=== PATIENT | female | born 1945 | race Caucasian/White ===

== ENCOUNTER → 2020-09-01 | Outpatient (CLI) | payer MEDICARE, OTHER ==
[~2020-09-01] MED LIST: ATOR10 PO; CALCIUM 250 MG; FISH OIL 1200MG; ZOMETA 4 M4 MG/100 M IV
== END | disposition home or self-care (01) ==
LOC: LAB SHORT 16:02 → LAB 16:02
DX: R30.0 Dysuria (principal)
CPT/HCPCS: 87086

== ENCOUNTER → 2020-09-14 | Outpatient (CLI) | payer MEDICARE, OTHER | END | disposition home or self-care (01) | LOC: LAB 15:59 | DX: N39.0 Urinary tract infection, site not specified (principal) | CPT/HCPCS: 87086 ==

== ENCOUNTER 2024-08-23 13:27 | Day surgery (SDC) | payer MEDICARE, OTHER ==
[2024-08-23] VITALS (9 sets, daily range): BP systolic 112–155; BP diastolic 60–88
[~2024-08-23] VITALS: Ht 160 cm; Wt 74.0 kg
[~2024-08-23 13:27] MED LIST changes: +ACIDOPHILUS1 EAC3 PO; +ASCO500 PO; +CALCIUM-VITAMIN D PO; +CO Q10100 MG PO; +L-LYSINE500 M1; +LORA10ER PO; +LOSA25 PO; +Lovastatin20 MG PO; +MULTI-VITAMIN1 EAC2 PO
[2024-08-23] MEDS ORDERED: propofoL 20 ML IV ONE ×2 (14:27→15:26)
[2024-08-23] MEDS ORDERED: FentaNYL Citrate 50 MCG/ML 2 ML Injection ONE (14:28)
[2024-08-23] MEDS ORDERED: CeFAZolin Sodium 2,000 MG in NS 100 ML IV SCH (14:30)
[2024-08-23] MEDS ORDERED: Lactated Ringer's 1,000 ML IV SCH (14:30)
--- NOTE | 2024-08-23 14:38 | NUR ---
Ambulatory in Day Surgery History, Chart, Medications and Allergies reviewed before start of procedure.Lungs clear T/O to Auscultation. Patient confirms NPO status and agrees with scheduled surgery. Patient reports completing Chlorhexadine shower X2 prior to admission to hospital.Surgical site prepped with 2% Chlorhexidine cloth wipe. Patient States Post-Procedure ride home has been arranged.
[2024-08-23] MEDS ORDERED: Bupivacaine 0.5% HCl 5 MG/ML 30MLVIAL ONE (14:53)
[2024-08-23] MEDS ORDERED: Ondansetron HCl 2 MG / ML 2ML Vial ONE (15:47)
[2024-08-23] MEDS ORDERED: ePHEDrine Sulfate 50 MG/ML 1ML Injection IV PRN (16:05)
[2024-08-23] MEDS ORDERED: HYDROmorphone HCl/Pf 1MG SYR ONE (16:05)
[2024-08-23] MEDS ORDERED: Droperidol 5 mg/2 ml Vial IV PRN (16:10)
[2024-08-23] MEDS ORDERED: Ondansetron HCl 2 MG / ML 2ML Vial IV PRN (16:10)
[2024-08-23] MEDS ORDERED: Labetalol HCL 5 MG/ML 4ML Injection (Single Dose) IV PRN (16:10)
[2024-08-23] MEDS ORDERED: HYDROmorphone HCl/Pf 1MG SYR IV PRN ×2 (16:10→16:15)
[2024-08-23] MEDS ORDERED: Albuterol 2.5 MG/3 ML VIAL INH PRN (16:10)
[2024-08-23] MEDS ORDERED: FentaNYL Citrate 50 MCG/ML 2 ML Injection IV PRN ×2 (16:10)
[2024-08-23] MEDS ORDERED: HydrALAZINE HCl 20 MG / ML 1ML Vial IV PRN (16:15)
[2024-08-23] MEDS ORDERED: Glycopyrrolate 0.2 MG/ML 5ML VIAL ONE (16:21)
[2024-08-23] MEDS ORDERED: ePHEDrine Sulfate 50 MG/ML 1ML Injection ONE (16:24)
[2024-08-23] MEDS ORDERED: HYDROcodone 5-APAP 325 TAB PO PRN (17:05)
== END 2024-08-24 02:55 | disposition home or self-care (01) ==
LOC: MOI US 13:27 → ORSCMMR 13:28 → MOI US 08-24 02:55
DX: C50.511 Malignant neoplasm of lower-outer quadrant of right female breast (principal); Z17.0 Estrogen receptor positive status [ER+]; I10 Essential (primary) hypertension; E78.5 Hyperlipidemia, unspecified; G47.33 Obstructive sleep apnea (adult) (pediatric); Z88.0 Allergy status to penicillin; Z88.8 Allergy status to other drugs, medicaments and biological substances; Z79.899 Other long term (current) drug therapy
CPT/HCPCS: 19285; 19286; 77065; A4648; J0690; J1171; J2405; J2704; J3010; J7120

== ENCOUNTER 2024-09-09 09:58 | Observation (INO) | payer MEDICARE, OTHER ==
[2024-09-09] VITALS (19 sets, daily range): BP systolic 112–189; BP diastolic 52–90
[~2024-09-09] VITALS: Ht 160 cm; Wt 72.9 kg
[~2024-09-09 09:58] MED LIST changes: +CeFAZolin Sodium 2,000 MG in NS 100 ML IV SCH; +Lactated Ringer's 1,000 ML IV SCH
[2024-09-09] MEDS ORDERED: Acetaminophen 500 MG Tab PO SCH (10:40)
[2024-09-09] MEDS ORDERED: Bupivacaine 0.5% HCl 5 MG/ML 30MLVIAL ONE (10:51)
--- NOTE | 2024-09-09 11:41 | NUR ---
History, Chart, Medications and Allergies reviewed before start of procedure. Patient up to Ambulate independently. Gait steady. Pre-Op teaching done. Pt verbalizes understanding. Patient confirms NPO status and agrees with scheduled surgery. Patient reports completing Chlorhexadine shower X2 prior to admission to hospital. Surgical site prepped with 2% Chlorhexidine cloth wipe.
[2024-09-09] MEDS ORDERED: FentaNYL Citrate 50 MCG/ML 2 ML Injection ONE (11:43)
[2024-09-09] MEDS ORDERED: Etomidate 2MG / ML 10ML Vial ONE (11:45)
[2024-09-09] MEDS ORDERED: HYDROmorphone HCl/Pf 1MG SYR ONE ×2 (12:06→12:45)
[2024-09-09] MEDS ORDERED: Ondansetron HCl 2 MG / ML 2ML Vial ONE (12:12)
[2024-09-09] MEDS ORDERED: Dexamethasone Sod Phos 10 MG/ML 1ML VIAL ONE (12:12)
[2024-09-09] MEDS ORDERED: Phenylephrine HCl 100 MCG/ML-NS 10MLSYR (1MG/10ML) ONE (13:33)
[2024-09-09] MEDS ORDERED: Ketorolac Tromethamine 30mg Vial ONE (13:35)
[2024-09-09] MEDS ORDERED: Ondansetron HCl 2 MG / ML 2ML Vial IV PRN (14:20)
[2024-09-09] MEDS ORDERED: HYDROcodone 5-APAP 325 TAB PO PRN (14:20)
[2024-09-09] MEDS ORDERED: Naloxone HCl 0.4MG / ML 1ML Vial ONE (14:35)
--- NOTE | 2024-09-09 19:59 | NUR ---
SHIFT SUMMARY POD0 R MASTECTOMY, A/OX4, VSS, TOLERATING PO, SHE REPORTS PAIN TO BE TOLERABLE AND HAS NOT NEEDED ANYTHING FOR PAIN THIS SHIFT, ABLE TO VOID INDEPENDENTLY. [facility] DRAIN DRESSING CHANGED IT WAS LEAKING OUT ON HER GOWN. NO ACUTE EVENTS THIS SHIFT, CALL LIGHT IN REACH.
[2024-09-10 00:09] VITALS: BP 133/66
[2024-09-10 04:34] VITALS: BP 117/57
[2024-09-10 07:25] VITALS: BP 122/61
--- NOTE | 2024-09-10 07:51 | NUR ---
SHIFT SUMMARY NOC. PT POD 1 FOR RIGHT MASTECTOMY. PT'S DRESSING C/D/I WITHOUT LEAKAGE FROM REIENFORCEMENT. VSS. PT TITRATED TO RA WITHOUT DESAT. [facility] DRAIN PRODUCING OUTPUT. PT DENIES PAIN THIS SHIFT, EDUCATION PROVIDED ON STAYING AHEAD OF PAIN. PT VERBALIZED UNDERSTANDING. PT VOIDING URINE AND TOLERATING CLEAR LIQUIDS WITHOUT N/V. BED IN LOWEST POSITION. CALL LIGHT IN REACH.
[2024-09-10] MEDS ORDERED: Losartan Potassium 25 MG Tab PO SCH (09:00)
[2024-09-10] MEDS ORDERED: Atorvastatin 10 MG Tab PO SCH (09:00)
--- NOTE | 2024-09-10 10:06 | NUR ---
DISCHARGE SUMMARY POD1 R MASTECTOMY, A/OX4, VSS, TOLERATING PO, AMBULATING INDEPENDENTLY IN HER ROOM, VOIDING, INCISION ON R BREAST C/D/I, [facility] DRAIN DRESSING WITH CHG C/D/I. DISCUSEED DISCHARGE INSTRUCTIONS INCLUDING HOME CARE, MEDICATIONS, AND FOLLOW UP WITH SURGEON. DISCUSSED [facility] DRAIN MANAGMENT AND DRAIN LOG WITH HER WELL. NO QUESTIONS AT THIS TIME. PT DECLINED WC ESCORT AND LEFT AMBULATORY.
== END 2024-09-10 10:00 | disposition home or self-care (01) ==
LOC: NM 09:58 → ORSCMMR 10:00 → NM 10:30 → SURS 14:32 → NM 18:48 → SURS 09-10 10:00
PROVIDERS: ADMIT Surgery
PROC: 0HTT0ZZ Resection of Right Breast, Open Approach (ICD-10-PCS; principal; 2024-09-09 11:45)
DX: C50.511 Malignant neoplasm of lower-outer quadrant of right female breast (principal); E78.5 Hyperlipidemia, unspecified; I10 Essential (primary) hypertension; G47.33 Obstructive sleep apnea (adult) (pediatric); Z79.899 Other long term (current) drug therapy; Z88.0 Allergy status to penicillin; Z88.8 Allergy status to other drugs, medicaments and biological substances
CPT/HCPCS: 38792; 88307; A9270; A9520; J0690; J1100; J1171; J1885; J2310; J2371; J2405; J3010; J7120

== ENCOUNTER → 2025-07-17 | Outpatient (CLI) | payer MEDICARE, OTHER ==
[~2025-07-17] MED LIST changes: -CeFAZolin Sodium 2,000 MG in NS 100 ML IV SCH; -Lactated Ringer's 1,000 ML IV SCH
== END ==
LOC: LAB SHORT 16:37 → LAB 16:37
DX: N39.0 Urinary tract infection, site not specified (principal)
CPT/HCPCS: 87077; 87086; 87186

== ENCOUNTER → 2025-08-01 | Outpatient (CLI) | payer MEDICARE, OTHER ==
[2025-08-01 20:03] LABS: Bacterial Vaginosis PCR Negative (NEGATIVE); Candida Group, PCR NOT DETECTED (NOT DETECT); Candida glabrata-krusei, PCR NOT DETECTED (NOT DETECT)
== END ==
LOC: LAB 15:35 → LAB SHORT 15:35
PROVIDERS: Family Medicine
DX: N89.8 Other specified noninflammatory disorders of vagina (principal)
CPT/HCPCS: 81515